=== PATIENT | female | born 1995 | race Caucasian/White ===

== ENCOUNTER 2016-11-17 18:50 | Observation (INO) | payer OTHER ==
[2016-11-17] MEDS ORDERED: CLINDAMYCIN 900 MG/DEXTROSE 50 ML IV ONE (18:51)
[2016-11-17] MEDS ORDERED: BUPIVACAINE/EPI 0.25% 30 ML SDV ONE (18:55)
--- NOTE | 2016-11-17 18:56 | PDGENHP ---
History and Physical - Chief Complaint abdominal pain - History of Present Illness Otherwise healthy 21yo F presents from [facility] with abdominal pain since Wednesday. Patient states that she has had vague abdominal pain since Wednesday, this progressed and worsened today. With the worsening pain, she presented to her PCP where she had a CBC which was WNL and a CT scan which confirms a dilated, fluid filled appendix in the RLQ. Pain is sharp in the RLQ with radiation to the LLQ. Denies nausea, denies vomiting along with fevers and chills. History Information - Allergies/Home Medication List Allergies/Adverse Reactions: Penicillins Allergy (Intermediate, Verified 08/16/14 13:29) Hives Home Medications: Controll Pills 08/16/14 [Last Taken Unknown] I have personally reviewed and updated: family history, medical history, social history, surgical history - Past Medical History Additional medical history: anxiety, depression - Surgical History Additional surgical history: tonsillectomy - Family History Positive for: non-pertinent - Social History Smoking Status: Never smoked Alcohol Use: Occasionally Drug Use: Marijuana Review of Systems ROS: 10pt was reviewed & negative except for what was stated in HPI & below Physical Exam Constitutional: no apparent distress, appears nourished, not in pain Eyes: PERRL, anicteric sclera, EOMI Ears, Nose, Mouth, Throat: moist mucous membranes, hearing normal, ears appear normal, no oral mucosal ulcers Cardiovascular: regular rate and rhythym, no murmur, rub, or gallop, No edema Respiratory: no respiratory distress, no rales or rhonchi, clear to auscultation Gastrointestinal: other (soft, nondistended, TTP in the RLQ with rebound. ) Skin: warm, normal color, no rashes or abrasions, no fluctuance, no induration, No mottled Musculoskeletal: full muscle strength, no muscle tenderness, normal joint ROM, no joint effusions Neurologic: AAOx3 Psychiatric: interacting appropriately, not anxious, not encephalopathic, thought process linear Lymph, Heme, Immunologic: no cervical LAD, no supraclavicular LAD Lab Data & Imaging Review Visualized and Interpreted imaging results: Yes Interpretation: CT scan shows dilated appendix to 10mm, fluid filled with appendicolith Assessment & Plan Assessment: Acute appendicitis Plan: Discussed RBA to lap appy with patient and her mother. Will plan for lap appy PAGE. IV abx quarry extraction worker to the OR.
[2016-11-17] MEDS ORDERED: LR 1,000 ML IV ONE (19:06)
[2016-11-17] MEDS ORDERED: PROPOFOL 200 MG/20 ML VIAL ONE (19:08)
[2016-11-17] MEDS ORDERED: ROCURONIUM 50 MG/5 ML VIAL ONE (19:10)
[2016-11-17] MEDS ORDERED: fentaNYL 100 MCG/2 ML INJ ONE ×3 (19:10→20:40)
[2016-11-17] MEDS ORDERED: ONDANSETRON 4 MG/2 ML VIAL ONE ×3 (19:11→20:46)
[2016-11-17] MEDS ORDERED: DEXAMETHASONE 4 MG/ML VIAL ONE (19:11)
[2016-11-17] MEDS ORDERED: MIDAZOLAM 2 MG/2 ML VIAL IVP ONE (19:13)
[2016-11-17] MEDS ORDERED: HYDROmorphONE/DILAUDID 1 MG/ML SYR IVP PRN ×2 (19:14→20:20)
[2016-11-17] MEDS ORDERED: OXYCODONE/APAP 5/325 TAB PO PRN ×2 (19:14→21:01)
[2016-11-17] MEDS ORDERED: fentaNYL 100 MCG/2 ML INJ IVP PRN ×4 (19:14→20:57)
[2016-11-17] MEDS ORDERED: NALOXONE HCL 0.4 MG/ML INJ IVP PRN ×2 (19:14→20:59)
--- NOTE | 2016-11-17 19:15 | PDANEPAE ---
ANE History of Present Illness Appendectomy ANE Past Medical History - Pulmonary History Hx Oxygen in Use at Home: No Hx Sleep Apnea: No - Endocrine History Hx Diabetes: No ANE Review of Systems Review of systems is: negative - Exercise capacity METS (RN): 4 METS ANE Patient History - Allergies Allergies/Adverse Reactions: Penicillins Allergy (Intermediate, Verified 08/16/14 13:29) Hives - Home Medications Home Medications: Controll Pills 08/16/14 [Last Taken 11/16/16 20:00] Citalopram 11/17/16 [Last Taken 11/16/16 20:00] - NPO status NPO Since - Liquids (Date): 11/17/16 NPO Since - Liquids (Time): 12:00 NPO Since - Solids (Date): 11/17/16 NPO Since - Solids (Time): 12:00 - Smoking Hx Smoking Status: Never smoked - Alcohol Use Alcohol Use: Occasionally ANE Labs/Vital Signs - Vital Signs Blood Pressure: 121/76 Heart Rate: 71 Respiratory Rate: 15 O2 Sat (%): 97 Height: 162.56 cm Weight: 59.421 kg ANE Physical Exam - Airway Neck exam: FROM Mallampati Score: Class 2 Mouth exam: normal dental/mouth exam - Pulmonary Pulmonary: clear to auscultation - Cardiovascular Cardiovascular: regular rate and rhythym - ASA Status ASA Status: I ANE Anesthesia Plan Anesthesia Plan: general endotracheal anesthesia
[2016-11-17] MEDS ORDERED: MIDAZOLAM 2 MG/2 ML VIAL ONE (19:18)
[2016-11-17] MEDS ORDERED: ONDANSETRON 4 MG/2 ML VIAL IVP PRN ×2 (20:20→21:00)
[2016-11-17] MEDS ORDERED: HYDROCODONE/APAP 5/325 TAB PO PRN (20:20)
--- NOTE | 2016-11-17 20:20 | POSTOPPROG ---
Post Op Note Date of Operation: 11/17/16 Surgeon: Mandeep Nobles Anesthesiologist: Elpidio Anesthesia: GET(General Endotracheal) Pre-op Diagnosis: appendicitis Post-op Diagnosis: same Procedure: lap appy Findings: acute non perforated Inf/Abcess present in the surg proc area at time of surgery?: No EBL: Minimal Specimen(s): appendix
--- NOTE | 2016-11-17 20:21 | POSTANESTH ---
Post Anesthetic Evaluation Cardiovascular Status: Normal, Stable Respiratory Status: Normal, Stable Level of Consciousness/Mental Status: Can Participate in Eval, Alert and Oriented Pain Control: Adequate, Prn Tx Ordered Nausea/Vomiting Control: Adequate, Prn Tx Ordered Complications Possibly Related to Anesthesia: None Noted
[2016-11-17] MEDS ORDERED: HYDROmorphONE/DILAUDID 1 MG/ML SYR ONE (20:28)
[2016-11-17] MEDS: HYDROmorphONE/DILAUDID 1 MG/ML SYR IVP PRN ×4 (20:29→21:13)
[2016-11-17] MEDS ORDERED: D5W 1/2 NS W/ 20 KCl/L 1,000 ML IV SCH (20:30)
[2016-11-17] MEDS: ONDANSETRON 4 MG/2 ML VIAL IVP PRN ×2 (20:42→20:52)
--- NOTE | 2016-11-17 21:19 | GOP ---
[f rep st] OPERATIVE REPORT DATE OF OPERATION: 11/17/2016 SURGEON: Mandeep Nobles MD ANCHOR OPERATOR: None. ANESTHESIA: General endotracheal. ANESTHESIOLOGIST: Paco Magallanes DO PREOPERATIVE DIAGNOSIS: Acute appendicitis. POSTOPERATIVE DIAGNOSIS: Acute appendicitis. PROCEDURE PERFORMED: Laparoscopic appendectomy. FINDINGS: Acute inflamed appendicitis, nonperforated. SPECIMENS: Appendix. ESTIMATED BLOOD LOSS: 5 cc. DESCRIPTION OF PROCEDURE: The patient was greeted in the preoperative suite. Once again, risks, be nefits, and alternatives were discussed. Consent was signed. She was then brought back to the oper ative suite, placed on the OR table in supine position. After all anesthesia machines, including SC Ds, were on and functioning, World Health Organization time-out was performed. Antibiotics were giv en on-call to the operating room. After successful induction of general anesthesia, the patient's a bdomen was prepped and draped in typical sterile fashion. I entered the abdomen by making a curvili near cutdown inferior to the umbilicus, through which I inserted the Veress needle and insufflated w ith CO2 to 15 mmHg, which was well tolerated by the patient. Through this, I inserted a 12 mm Visip ort. Once successfully in the abdomen, I inserted 2 additional 5 mm trocars, 1 in the suprapubic an d 1 in the left lower quadrant, both under visualization. After this was done, I identified the robert endix by tracing the taeniae inferiorly. Once this was done, the appendiceal base appeared to be no nindurated and healthy. I created a window at the base and successfully amputated the appendix usin g a single fire of the Endo-RAINER blue load stapler. Once this was done, using an additional fire of the white load, I amputated the mesoappendix and removed the appendix with an EndoCatch bag. I insp ected my staple lines, which were clean, dry, intact, and hemostatic. I inspected the remainder of the abdominal viscera and had no other apparent findings, which were ominous. I infiltrated local a nesthesia into all port sites, which were then removed under direct visualization. I closed my infr aumbilical port site with an 0 Vicryl stitch in a [id number] fashion noting excellent reapproxi mation. The skin was then closed with running 4-0 Monocryl, over which Dermabond was placed. Juany gustafson was then extubated in the operative suite and taken to PACU in satisfactory condition. DRAINS: None. COUNTS: All counts were reported as correct x2. /[id number]/MODL
[2016-11-17] MEDS: IBUPROFEN 600 MG TAB PO SCH (22:28)
[2016-11-17 23:00] VITALS: RESP 16
[2016-11-18] MEDS: IBUPROFEN 600 MG TAB PO SCH ×2 (06:26→12:07)
--- NOTE | 2016-11-18 07:42 | SOAPPROG ---
SOAP Progress Note Assessment/Plan: Assessment/Plan: - POD#1 s/p lap appy - Doing well, pain controlled. Has had juice, will order bkfst this AM. If all goes well will plan for dc later this AM - FU with me in 10-14 d 11/18/16 07:41 Subjective: Doing well, pain controlled. Objective: Vital Signs Temp Pulse Resp BP Pulse Ox 36.8 C 66 16 123/49 H 97 11/18/16 05:02 11/18/16 05:02 11/18/16 05:02 11/18/16 05:02 11/18/16 05:02 11/17/16 11/18/16 11/19/16 05:59 05:59 05:59 Intake Total 1250 Output Total 800 Balance 450 ICD10 Worksheet Patient Problems: Problems Problem Status Onset Appendicitis Acute - ICD10 Problem Qualifiers (1) Appendicitis Qualifiers: Appendicitis type: A Acute appendicitis type: A
[2016-11-18 11:07] VITALS: BP 125/76; PULSE 80; TEMP 98.3; O2SAT 97
== END 2016-11-18 14:11 | disposition home or self-care (01) ==
LOC: F3E 18:50 → F1N 20:00
PROVIDERS: ADMIT Surgery; ATTEND Surgery
PROC: 0DTJ4ZZ Resection of Appendix, Percutaneous Endoscopic Approach (ICD-10-PCS; principal; 2016-11-17 20:00)
DX: K35.80 Unspecified acute appendicitis (principal)
CPT/HCPCS: 44970; G0378; J1100; J1170; J2250; J2405; J2704; J3010